=== PATIENT | male | born 1970 | race Caucasian/White ===

== ENCOUNTER 2017-11-14 16:58 | Emergency (ER) | payer BC ==
[2017-11-14] MEDS ORDERED: HYDROcodone/ACETAMIN 5-325 MG* 1 TAB PO ONE ×2 (17:11→19:20)
--- NOTE | 2017-11-14 17:43 | RAD ---
INDICATION: Left wrist and forearm pain after "falling through floor" COMPARISON: None. TECHNIQUE: 2 views left wrist and 2 views of the left forearm. REPORT: There is a minimally displaced fracture through the distal most left radius. On the lateral view the distal left radius fracture appears to be angulated dorsally. The remaining visualized bones appear to be intact and appropriately aligned. IMPRESSION: Minimally displaced distal left radius fracture. The carpal bones appear to be appropriately aligned and intact though a 4 view dedicated left wrist radiographic series may be appropriate to ascertain the absence of fracture or malalignment of the carpal bones. Signed
[2017-11-14 20:47] VITALS: BP 132/85
--- NOTE | 2017-11-14 22:41 | ED ---
Theresa Aranda Emily, scribed for Nimisha Figueroa MD on 11/14/17 at 1735 . Upper Extremity Pain <Armen Burnham - Last Filed: 11/14/17 20:11> - HPI Summary HPI Summary: This patient is a 47 year old M presenting to [facility] accompanied by sister with a chief complaint of L wrist pain that began status post fall that occurred [employer]. Pt reports that he fell through a floor joist, and caught his left wrist in it. The patient rates the pain 7/10 in severity. The pain is aggravated by movement of the wrist. Symptoms alleviated by nothing. Patient denies L upper arm pain and L elbow pain. Not on blood thinners. He denies any other injuries. - History of Current Complaint Hx Obtained From: Patient Mechanism Of Injury: Fall From Height Of: - through a floor joist Onset/Duration: Started Hours Ago, Traumatic, Still Present Timing: Constant Severity Initially: Moderate Severity Currently: Moderate Pain Location: Wrist - left Character: Sharp Aggravating Factor(s): Movement Alleviating Factor(s): Nothing Associated Signs & Symptoms: Positive: Other - +deformity; Negative L upper arm pain and L elbow pain Related History: Dominant Hand Right <Nimisha Figueroa - Last Filed: 11/14/17 22:38> - History of Current Complaint Chief Complaint: EDExtremityUpper Stated Complaint: LT ARM INJURY - Allergies/Home Medications Allergies/Adverse Reactions: Allergies Allergy/AdvReac Type Severity Reaction Status Date / Time No Known Allergies Allergy Verified 11/14/17 17:01 Home Medications: Home Medications Allopurinol TAB* [Zyloprim 300 MG TAB*] 300 mg PO DAILY 11/14/17 [History Confirmed 11/14/17] Atorvastatin* [Lipitor*] 40 mg PO DAILY 11/14/17 [History Confirmed 11/14/17] Finasteride [Proscar] 5 mg PO DAILY 11/14/17 [History Confirmed 11/14/17] Lisinopril TAB* [Prinivil TAB*] 2.5 mg PO DAILY 11/14/17 [History Confirmed 08/02] LoraTADine TAB(NF) [Claritin 10 MG TAB(NF)] 10 mg PO DAILY 11/14/17 [History Confirmed 11/14/17] Montelukast Sodium TAB* [Singulair TAB*] 10 mg PO DAILY 11/14/17 [History Confirmed 11/14/17] SUMAtriptan TAB* [Imitrex TAB*] 100 mg PO DAILY PRN 11/14/17 [History Confirmed 11/14/17] SitaGLIPtin (NF) [Januvia (NF)] 100 mg PO DAILY 11/14/17 [History Confirmed 08/02] Tamsulosin CAP* [Flomax CAP*] 0.4 mg PO DAILY 11/14/17 [History Confirmed ] metFORMIN* [Glucophage 500 MG TAB *] 500 mg PO BID 11/14/17 [History Confirmed 11/14/17] PMH/Surg Hx/FS Hx/Imm Hx Previously Healthy: Yes Opthamlomology History: Denies: Hx Legally Blind EENT History: Denies: Hx Deafness - Surgical History Surgery Procedure, Year, and Place: 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 Negative L upper arm pain and L elbow pain Skin: Negative Neurological: Negative Psychological: Normal All Other Systems Reviewed And Are Negative: Yes <Nimisha Figueroa - Last Filed: 11/14/17 22:38> Physical Exam Vital Signs On Initial Exam: Initial Vitals Temp Pulse Resp BP Pulse Ox 97.3 F 81 16 117/78 97 11/14/17 17:01 11/14/17 17:01 11/14/17 17:01 11/14/17 17:01 11/14/17 17:01 <Armen Burnham - Last Filed: 11/14/17 20:11> - Summary Physical Exam Summary: Appearance: Well-appearing, moderate pain distress, well-nourished, ambulatory Skin: Warm, color reflects adequate perfusion, dry, ecchymosis L wrist, right benitez with superficial abrasion (pt states this was prior to the wrist injury) Head: Normal Head/Face inspection, atraumatic Eyes: Conjunctiva clear ENT: Normal inspection Neck: Supple, no nodes, no JVD, no spinal tenderness Respiratory: Lungs clear, normal breath sounds, no respiratory distress Cardio: RRR, No murmur, pulses normal, brisk capillary refill Abdomen: Soft, nontender Bowel sounds: Present Musculoskeletal: Strength Intact/ROM intact, no calf tenderness, no edema. L wrist with deformity and tenderness radial aspect. Positive snuff box tenderness. Pulses intact. Sensation intact. Full ROM of left hand and left elbow. No bony tenderness of left hand or left elbow. Decreased ROM left shoulder, no deformity. Pt declines further movement of left shoulder due to pain in wrist. Psychological: Normal Neuro: Alert, muscle tone normal, no focal deficit Triage Information Reviewed: Yes Vital Signs On Initial Exam: Initial Vitals Temp Pulse Resp BP Pulse Ox 97.3 F 81 16 117/78 97 11/14/17 17:01 11/14/17 17:01 11/14/17 17:01 11/14/17 17:01 11/14/17 17:01 Vital Signs Reviewed: Yes - [place] Coma Scale Best Eye Response: 4 - Spontaneous Best Motor Response: 6 - Obeys Commands Best Verbal Response: 5 - Oriented Coma Scale Total: 15 <Nimisha Figueroa - Last Filed: 11/14/17 22:38> Procedures - Splinting 1 Location: left forearm Hand-Made Type: orthoglass Splint: sugar-tong Pre-Proc Neuro Vasc Exam: normal Post-Proc Neuro Vasc Exam: normal <Armen Burnham - Last Filed: 11/14/17 20:11> Diagnostics - Vital Signs Vital Signs Temp Pulse Resp BP Pulse Ox 11/14/17 17:01 97.3 F 81 16 117/78 97 <Armen Burnham - Last Filed: 11/14/17 20:11> - Vital Signs Vital Signs Temp Pulse Resp BP Pulse Ox 11/14/17 17:01 97.3 F 81 16 117/78 97 - Radiology L Wrist XR Radiology Interpretation Completed By: Radiologist - L wrist XR reveals, per radiologist, minimally displaced distal left radius fracture. The carpal bones appear to be appropriately aligned and intact though a 4 view dedicated left wrist radiographic series may be appropriate to ascertain the absence of fracture or malalignment of the carpal bones. ED physician has reviewed this radiology report. L Forearm XR Radiology Interpretation Completed By: Radiologist - L forearm XR reveals, per radiologist, minimally displaced distal left radius fracture. The carpal bones appear to be appropriately aligned and intact though a 4 view dedicated left wrist radiographic series may be appropriate to ascertain the absence of fracture or malalignment of the carpal bones. ED physician has reviewed this radiology report. <Nimisha Figueroa - Last Filed: 11/14/17 22:38> Re-Evaluation - Re-Evaluation First Eval Re-Evaluation Time: 19:00 Change: Unchanged Comment: still with pain. Will give more [place] and dispense 3 day supply for home use. Tej Ayers PA will place sugar tong splint. Pt agrees to this. <Nimisha Figueroa - Last Filed: 11/14/17 22:38> Course/Dx <Armen Burnham - Last Filed: 11/14/17 20:11> - Course Assessment/Plan: This patient is a 47 year old M [facility] [place] with a chief complaint of L wrist pain that began status post fall that occurred [employer]. Pt reports that he fell through a floor joist, and caught his left wrist in it. L forearm XR reveals, per radiologist, minimally displaced distal left radius fracture. The carpal bones appear to be appropriately aligned and intact though a 4 view dedicated left wrist radiographic series may be appropriate to ascertain the absence of fracture or malalignment of the carpal bones. Additional views show no fracture of carpal bones. Consult with Dr. Contreras (orthopedics) at 1914. He recommended a sugar tong splint and will follow up with the patient on Thursday11/16/17. Armen ASHLEY placed the sugar tong splint. The patient will be discharged home with follow up from PCP and Dr. Contreras. He is agreeable with this plan. - Diagnoses Differential Diagnosis/HQI/PQRI: Positive: Contusion, Fracture (Closed) - Physician Notifications Discussed Care of Patient With: Johnny Contreras Time Discussed With Above Provider: 19:15 Instructed by Provider To: Other - Consult with Dr. Contreras (orthopedics) at 1914. He recommended a sugar tong splint and will follow up with the patient on Thursday. <Nimisha Figueroa - Last Filed: 11/14/17 22:38> - Diagnoses Provider Diagnoses: Left wrist fracture Discharge <Armen Burnham - Last Filed: 11/14/17 20:11> - Sign-Out/Discharge Documenting (check all that apply): Discharge/Admit/Transfer - Discharge home - Billing Disposition and Condition Condition: STABLE Disposition: HOME <Nimisha Figueroa - Last Filed: 11/14/17 22:38> - Discharge Plan Condition: Stable Disposition: HOME Patient Education Materials: Wrist Fracture in Adults (ED) Referrals: Johnny Contreras MD [Medical Doctor] - 2 Days Additional Instructions: Dr. Figueroa spoke with Dr. Chapin the orthopedist and one of the orthopedists in their group can see you on Thursday November 16, 2017. Call the office first thing on Thursday. Keep the splint in place until you are seen by the orthopedist. Keep it dry. Take the hydrocodone as directed for pain. We have dispensed from the hospital pharmacy hydrocodone/acetaminophen 5/325m tab orally every 4 hours as needed for pain, with a maximum daily dose of 6 tablets, a total of 18 pills, a 3 day supply. Return to the ER if you have new or worsening pain. The documentation as recorded by the Theresa causey Emily accurately reflects the service I personally performed and the decisions made by me, Nimisha Figueroa MD.
== END 2017-11-14 20:46 | disposition home or self-care (01) ==
LOC: ED 16:58
DX: S52.502A Unspecified fracture of the lower end of left radius, initial encounter for closed fracture (principal); M25.522 Pain in left elbow; W17.89XA Other fall from one level to another, initial encounter; Y92.9 Unspecified place or not applicable
CPT/HCPCS: 99283